=== PATIENT | female | born 1965 | race Caucasian/White ===

== ENCOUNTER 2025-01-14 09:54 | Emergency (ER) | payer OTHER, SELFPAY ==
[2025-01-14 10:00] VITALS: BP 129/91; BP 143/89; BMI 33.2
[2025-01-14 10:19] LABS: Hematocrit 41.1 % (37.0-47.0); Hemoglobin 13.8 g/dL (12.0-16.0); Mean Corp Hgb Conc. 33.6 g/dL (33.0-37.0); Mean Corpuscular Volume 87.4 fL (81.0-99.0); Nucleated Red Blood Cells % 0 %; Platelet Count 206 10^3/uL (130-400); Red Cell Dist. Width 12.4 % (11.5-14.5)
--- NOTE | 2025-01-14 10:19 | ED.GENMED ---
History of Present Illness
<MIN Muñoz - Last Filed: 01/14/25 14:01>
General
Chief Complaint: Headache
Source: patient
Exam Limitations: none
Time Seen by Provider: 01/14/25 09:55
Nursing documentation reviewed up to this point in time: agreed with
History of Present Illness
History of Present Illness:
Patient is a 59-year-old presents to the ER for evaluation. Patient presents with mom bedside. Patient was brought to EMS. mom reports patient texted her this morning from her bedroom stating that she did not feel well and she was not going to
work. Mom went to check on her and patient was vomiting in the bathroom and when mom checked on her after patient seemed confused. Patient did not recall vomiting. She did complain of a headache. Patient was given she had COVID. Patient
presents awake alert she vaguely member she was a little confused. She reports headache is much better 3 out of a 10. She denies any recent trauma.
Patient denies any neck pain /blurred vision. She denies any numbness tingling or weakness to her extremities. She does report that she started with a headache yesterday does have a history of migraines in the past.
She denies alcohol use. Patient denies any chest pain shortness of breath, no cardiac history.
Past History
<MIN Muñoz - Last Filed: 01/14/25 14:01>
Past History
ED Past Medical History: None
Social History
Tobacco: Former smoker
Alcohol: Occasional
Drug: None
Phy Exam
<MIN Muñoz - Last Filed: 01/14/25 14:01>
General Physical Exam
General Presentation: no apparent distress
General age: appears stated age
General Skin: warm and dry
General Habitus: normal
General Mental: alert
General Hydration: appears well hydrated
Cardiovascular Exam
Cardiovascular Exam: regular rate/rhythm, no murmur and normal peripheral pulses
Pulmonary Exam
Pulmonary Exam: lungs clear and no respiratory distress
Neurological Exam
Neurological Exam: alert, oriented x3, no motor deficits and no sensory deficits
NIH Stroke Score
Level of Consciousness: 0 - Alert
LOC questions: 0-Answers both correctly
LOC Commands: 0-Performs both correctly
Best Gaze: 0-Normal
Visual Bobby: 0=Normal, no visual loss
Facial palsy: 0=Normal, symmetrical
Motor - Right Arm: 0=No drift 10 seconds
Motor - Left Arm: 0=No drift 10 seconds
Motor - Right Le-No drift 5 seconds
Motor - Left Le-No drift 5 seconds
Limb Ataxia: 0-Absent
Sensation: 0-Normal
Best Language: 0-No aphasia
Dysarthria: 0-Normal
Extinction and Inattention: 0-No abnormality
Total Score:: 0
[place] Coma Scale
Eye Opening: Spontaneous
Verbal Response: Oriented
Motor Response: Obeys Commands
GCS Total Score: 15
Cerebellar
Cerebellar Function: normal finger to nose
Musculoskeletal Exam
Musculoskeletal Exam: full ROM
Skin Exam
Skin Exam: normal color and warm/dry
Psychiatric Exam
Psychiatric Exam: normal mood/affect
Course
<MIN Muñoz - Last Filed: 01/14/25 14:01>
Orders/Labs/Results
Orders:
Orders
01/14/25 09:58
Cardiac Monitoring- Treatment ONCE
IV Insert/Care/Rem.- Treatment PRN
01/14/25 09:59
COVID-19 Antigen Urgent
Source: Nasal Swab
Complete Blood Count/With Diff Urgent
Comprehensive Metabolic Panel Urgent
01/14/25 10:27
CT Head W/o Iv Contrast Urgent
Comment:
Reason For Exam: headache confusion
01/14/25 10:34
0.9% Sodium Chloride 1000 ml [Nss] 1,000 ml IV BOLUS
01/14/25 12:11
Urinalysis Reflex To Culture Urgent
Date Specimen was Collected: 01/14/25
Time Specimen was Collected: 12:06
Urine Microscopic Reflex Cult Urgent
Abnormal Lab Results
01/14/25 01/14/25
09:59 12:11
Absolute Lymphs (auto) 0.5 L 10^3/uL
(1.2-3.4)
Neutrophils % 83.3 H %
(42.2-75.2)
Lymphocytes % 10.6 L %
(20.5-51.1)
Glucose 154 H mg/dl
(70-99)
Urine Ketones 1+ A
(Negative)
Ur Occult Blood Reflex 2+ A
(Negative)
Urine RBC 3-6 A /HPF
(0-2)
Urine Albumin (Reflex) 1+ A
(Neg - Trace)
01/14/25 09:59
01/14/25 09:59
Vital Signs
Initial and Last Documented VS:
Initial Vital Signs
Pulse Resp Pulse Ox
87 16 95
01/14/25 09:58 01/14/25 09:58 01/14/25 09:58
Last Documented Vital Signs
Temp Pulse Resp BP Pulse Ox
98.4 F 81 22 123/75 99
01/14/25 10:00 01/14/25 12:56 01/14/25 12:56 01/14/25 12:56 01/14/25 12:45
Client Relations Associate consulted with Physician
Client Relations Associate consulted with physician?: Yes
Name of Physician Consulted: DR Baxter
<Conrad Baxter, DO - Last Filed: 01/14/25 11:31>
Orders/Labs/Results
Orders:
Orders
01/14/25 09:58
Cardiac Monitoring- Treatment ONCE
IV Insert/Care/Rem.- Treatment PRN
01/14/25 09:59
COVID-19 Antigen Urgent
Source: Nasal Swab
Complete Blood Count/With Diff Urgent
Comprehensive Metabolic Panel Urgent
01/14/25 10:27
CT Head W/o Iv Contrast Urgent
Comment:
Reason For Exam: headache confusion
01/14/25 10:34
0.9% Sodium Chloride 1000 ml [Nss] 1,000 ml IV BOLUS
01/14/25 12:11
Urinalysis Reflex To Culture Urgent
Date Specimen was Collected: 01/14/25
Time Specimen was Collected: 12:06
Urine Microscopic Reflex Cult Urgent
Abnormal Lab Results
01/14/25 01/14/25
09:59 12:11
Absolute Lymphs (auto) 0.5 L 10^3/uL
(1.2-3.4)
Neutrophils % 83.3 H %
(42.2-75.2)
Lymphocytes % 10.6 L %
(20.5-51.1)
Glucose 154 H mg/dl
(70-99)
Urine Ketones 1+ A
(Negative)
Ur Occult Blood Reflex 2+ A
(Negative)
Urine RBC 3-6 A /HPF
(0-2)
Urine Albumin (Reflex) 1+ A
(Neg - Trace)
01/14/25 09:59
01/14/25 09:59
Vital Signs
Initial and Last Documented VS:
Initial Vital Signs
Pulse Resp Pulse Ox
87 16 95
01/14/25 09:58 01/14/25 09:58 01/14/25 09:58
Last Documented Vital Signs
Temp Pulse Resp BP Pulse Ox
98.4 F 81 22 123/75 99
01/14/25 10:00 01/14/25 12:56 01/14/25 12:56 01/14/25 12:56 01/14/25 12:45
<MIN Muñoz - Last Filed: 01/14/25 14:01>
MDM/Problems Addressed
Differential Diagnosis Includes:
Not limited to intracranial hemorrhage, complicated migraine, stroke
MDM/Problems Addressed:
Patient is well-appearing in no acute distress with headache yesterday had a headache today and episode of confusion as per mom. Patient presents awake alert no acute distress on arrival she had no neurological deficits and reports headache was
down to 3 out of a 10 no meningismus no recent fever chills no recent trauma her vitals are stable she is afebrile her white count is normal. CAT scan negative.
Case discussed with ED physician who evaluated patient. Likely complicated migraine no concerning findings from patient's workup.
Chronic conditions affecting care:
migraines
<MIN Muñoz - Last Filed: 01/14/25 14:01>
*Radiology
Radiology exam reviewed: radiology read reviewed
*Pulse Oximetry
SaO2: 95
Oxygen Mode of Delivery: Room air
Patient hypoxic: no
*Critical Care Note
Total Time (30-74mins, 75-104mins- exclusive of procedures): Not Applicable
ED Attending Note
<MIN Muñoz - Last Filed: 01/14/25 14:01>
-
Portions of this chart may have been created with voice recognition software.� Occasional wrong word or��sound alike� substitutions may have occurred due to the inherent limitations of voice recognition software.
<Conrad Baxter DO - Last Filed: 01/14/25 11:31>
ED Attending Note
Patient seen and examined by attending physician: Yes
I performed the substantive portion of visit, reviewed & personally made and approve the management plan that is documented in note by myself or MIRA.: Yes
ED Attending Note:
I evaluated the patient at bedside. She has an NIH stroke scale of 0. She is well-appearing. Her symptoms have spontaneously resolved/improved. We talked about the possible of this being a viral syndrome which led to a migraine. She has had
similar migraine type of headaches that she described as 'hormonal' in the past. She feels comfortable with going home.
Discharge Plan
Departure
Patient Disposition: Home (Routine Discharge)
Date of Disposition: 01/14/25
Time of Disposition: 12:07
Patient with high blood pressure during this ER visit?: Yes
Condition: Fair
Covid-19: Not Applicable
Discharge Problem:
Migraine
Instructions: Migraines (DC), BLOOD PRESSURE
Prescriptions:
No Action
metformin 500 mg Tablet
1,500 mg PO DAILY@1200
acetaminophen [Tylenol] 325 mg Tablet
650 mg PO Q6HPRN PRN (Reason: MILD PAIN)
propranolol 10 mg Tablet
10 mg PO DAILYPRN PRN (Reason: ANIXETY)
fluvoxamine 100 mg Tablet
150 mg PO DAILY
cholecalciferol (vitamin D3) [Vitamin D3] 25 mcg (1,000 unit) Tablet
25 mcg PO DAILY
omeprazole 20 mg Tablet,Delayed Release (Dr/Ec)
20 mg PO DAILYPRN PRN (Reason: GERD)
Referrals:
Inez Medellin MD [Family Provider, Internal Medicine]
Activity Restrictions/Additional Instructions:
As discussed stay well-hydrated. Your CAT scan was negative for acute findings and your labs are unremarkable your negative COVID.
Your sugar was mildly elevated here in the ER you were given intravenous fluids.
It is likely that symptoms are from complicated migraine.
Please follow-up closely with your family doctor in the next 2 days for reevaluation peer return if any worsening of symptoms.
Interventions
Interventions:
*Risk Screen - Suicide Last Done: 01/14/25 10:00
*General Assessment Last Done: 01/14/25 10:00
*Neglect/Abuse Screening Last Done: 01/14/25 10:00
*ED- Fall Risk Assessment Last Done: 01/14/25 10:00
*ED COVID-19 Vaccine History Last Done: 01/14/25 10:00
*Nursing Disposition Last Done: 01/14/25 13:05
ED- Neurological Assessment Last Done: 01/14/25 10:17
Discharge Date and Time
Discharge Date/Time: 01/14/25 13:05
Print Language: CITIZEN OF [place]
[2025-01-14 10:41] LABS: ALT (SGPT) 26 U/L (0-35); AST (SGOT) 29 U/L (14-36); Albumin 4.5 g/dl (3.5-5.0); Alkaline Phosphatase 84 U/L (38-126); Blood Urea Nitrogen 10 mg/dl (7-17); Calcium 9.2 mg/dl (8.4-10.2); Carbon Dioxide 23 mmol/L (22-30); Chloride 107 mmol/L (98-107); Estimated Creatinine Clearance 122 ml/min; Glucose 154 mg/dl (70-99); Potassium 3.9 mmol/L (3.5-5.1); Sodium 137 mmol/L (135-145); Total Protein 7.2 g/dl (6.3-8.2); eGFR > 60.00
[2025-01-14 10:51] LABS: COVID-19 Antigen Negative (Negative)
[2025-01-14 10:54] VITALS: BP 132/76
[2025-01-14 11:00] VITALS: BP 133/73
[2025-01-14] MEDS: NSS 1000 IV (11:00)
--- NOTE | 2025-01-14 11:26 | EDRN ---
Dr. Baxter in room w/ pt and family at this time.
--- NOTE | 2025-01-14 12:03 | EDRN ---
Raghav Patten [employer]ERAPE[employer]IC STRATEGY LEAD in room w/pt at this time.
[2025-01-14 12:04] VITALS: BP 130/70
[2025-01-14 12:22] LABS: Urine Character Clear (Clear)
[2025-01-14 12:56] VITALS: BP 123/75
== END 2025-01-14 13:05 | disposition home or self-care (01) ==
LOC: EMR 09:54
PROVIDERS: Nurse Practitioner; EMERGENCY PHYSICIAN Emergency Medicine; FAMILY PHYSICIAN Emergency Medicine
DX: G43.909 Migraine, unspecified, not intractable, without status migrainosus (principal); Z87.891 Personal history of nicotine dependence
CPT/HCPCS: 96360; 96361; 99284; 70450; 80053; 81003; 81015; 85025; 87811

== ENCOUNTER → 2025-03-31 14:02 | Outpatient (REF) | payer OTHER, SELFPAY | LOC: PAVMRI 14:02 | PROVIDERS: ATTENDING PHYSICIAN Emergency Medicine | DX: R51.9 Headache, unspecified (principal) | CPT/HCPCS: 70553; A9575 ==